=== PATIENT | male | born 1955 | race Caucasian/White ===

== ENCOUNTER → 2016-06-12 | Outpatient (CLI) | payer OTHER ==
[~2016-06-12] VITALS: Ht 175.3 cm; Wt 114.0 kg
[~2016-06-12] MED LIST: ADVAIR 250/501 DISK IH; ADVAIR 250/501 DISK PO; ANORO ELLIPTA1 EACH IH; ASPIR 8181 M1 PO; AUGMENTIN875 MG PO; B-1100 MG PO; BENZONATATE100 MG PO; BYSTOLIC10 MG PO; CEFTIN500 MG PO; CHERATUSSIN AC473 ML PO; CHLORASEPTIC177 ML MM; COLACE100 MG PO; COREG12.5 M1 PO; COZAAR50 MG PO; DAILY VALUE1 EACH PO; DOCUSATE SODIU100 MG PO; Ecotrin PO; FLORASTOR250 MG PO; FOLIC ACID1 MG PO; FUROSEMIDE20 MG PO; GABAPENTIN100 MG PO; GABAPENTIN400 MG PO; GLUCOPHAGE1000 MG PO; Glucophage PO; K-DUR20 MEQ PO; KLOR-CON 1010 ME1 PO; LANTUS 10100 UNITS/ SC; LASIX20 MG PO; LEVAQUIN750 MG PO; LEVEMIR FL100 UNITS/ SC; LIPITOR80 MG PO; LOSARTAN POTASS50 MG PO; LYRICA50 MG PO; Lipitor PO; Lopressor PO; METFORMIN HCL1000 MG PO; METOPROLOL SUCC25 MG PO; MIRALAX17 GM PO; MORGIDOX100 MG PO; NEURONTIN100 MG PO; NICOTINE PATCH1 EAC2 TD; NOHOMEMEDS; NOVOLIN,HU100 UNITS/ SC; NOVOLOG 10100 UNITS/ SC; NOVOLOG PE100 UNITS/ SC; NYQUIL D COLD295 ML PO; NYSTOP60 GM TP; Nitrostat,NitroQuick SL; NovoLOG, HumaLOG SC; PERCOCET 5/31 TABLET PO; PLAVIX75 MG PO; POLYETHYLENE GL17 GM PO; PREDNISONE10 MG PO; PREDNISONE20 MG PO; PREDNISONE5 MG PO; PROAIR HFA8.5 GM IH; PROBIOTIC1 EAC1 PO; PROVENTIL,2.5 MG/3 M IH; Plavix PO; Proventil,Ventolin H IH; ROBITUSSIN AC,T10 ML PO; SPIRIVA1 INHALATI IH; SYNTHROID50 MCG PO; THERAGRAN1 TABLET PO; TOPROL XL50 MG PO; Tylenol Regular Stre PO; VENTOLIN HFA18 GM IH; VITAMIN B-1100 MG PO; WELLBUTRIN100 MG PO; ZESTRIL40 MG PO; ZICAM PO; ZYLOPRIM300 MG PO
[2016-06-12 07:44] VITALS: BP 152/86
== END | disposition home or self-care (01) ==
LOC: IVINF 07:26
PROVIDERS: Internal Medicine Endocrinology, Diabetes & Metabolism
DX: R53.83 Other fatigue (principal)
CPT/HCPCS: 80400; 82024 90; 82533 91; 96374 59; J0834